=== PATIENT | female | born 1950 | race Two or more races ===

== ENCOUNTER 2023-03-23 14:01 | Emergency (ER) | payer OTHER, MEDICAID ==
[~2023-03-23] VITALS: Ht 152.4 cm; Wt 63.0 kg
[~2023-03-23 14:01] MED LIST: ALBUAER3 IN; CYCL-839 PO; OMEP20TA PO
[2023-03-23 15:12] VITALS: BP 136/85
== END 2023-03-23 16:19 | disposition home or self-care (01) ==
LOC: ER 14:01
DX: Z47.89 Encounter for other orthopedic aftercare (principal); S62.101D Fracture of unspecified carpal bone, right wrist, subsequent encounter for fracture with routine healing; J45.909 Unspecified asthma, uncomplicated; Z88.0 Allergy status to penicillin; X58.XXXD Exposure to other specified factors, subsequent encounter
CPT/HCPCS: 29125; 73110